=== PATIENT | female | born 1950 | race Caucasian/White ===

== ENCOUNTER 2022-08-25 14:22 | Observation (INO) | payer MEDICARE, MEDICAID, SELFPAY ==
--- NOTE | ~2022-08-25 | XR_ITS ---
EXAMINATION: XR chest 2V DATE: 08/25/22 INDICATION: Upper sternal pain. TECHNIQUE: Frontal and lateral views of the chest were obtained. COMPARISON: None. FINDINGS: There is mild atelectasis in lingula. No pleural effusion or pneumothorax. The heart size i s normal. Median sternotomy wires and mediastinal surgical clips are seen, likely from prior coronary artery bypass grafting. There is an old healed fracture of proximal left humerus. IMPRESSION: 1. Mild atelectasis in lingula. Reviewed, dictated and finalized at location A.
--- NOTE | ~2022-08-25 | CT_ITS ---
EXAMINATION: CT abdomen pelvis w con DATE: 08/25/2022 INDICATION: Generalized abdominal pain. TECHNIQUE: Computed tomography (CT) of the abdomen and pelvis was performed with 100 mL Omnipaque 350 intravenous contrast. Automated exposure control and iterative reconstruction technique were employe d. The dose-length product was 263 mGy-cm. COMPARISON: None. FINDINGS: The visualized portions of the lung bases demonstrate mild atelectasis. There is mild bronc hiectasis in right middle lobe. A calcified right lung nodule is consistent with old granulomatous di sease. No pleural effusion. The heart size is normal. No pericardial effusion. There is a small slidi ng hiatal hernia. The liver and spleen are normal. The gallbladder is distended. There is a 3 mm cyst in the pancreas, likely benign. The adrenal glands and kidneys are normal. There is diverticulosis o f the colon without evidence of diverticulitis. There is a large volume of stool in the colon. The ap pendix is normal. 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 There is mild stenosis of celiac axis and inferior mesenteric artery. There is thoracolumbar dextro scoliosis and severe spondylosis. IMPRESSION: 1. Gallbladder distention, which may be secondary to fasting. Correlate with physical exam to exclude acute cholecystitis. 2. 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 3. Small sliding hiatal hernia. Reviewed, dictated and finalized at location A. IMPRESSION: 1. Gallbladder distention, which may be secondary to fasting. Correlate with ph ysical exam to exclude acute cholecystitis. 2. 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 3. Small sliding hiatal hernia.
[2022-08-25 20:14] VITALS: BP 120/42; PULSE 87; O2SAT 97
[2022-08-25 20:43] LABS: Cholesterol 180 mg/dL (0-200); HDL Direct 47 mg/dL; Triglycerides 326 mg/dL (<150)
[2022-08-25 20:55] LABS: LDL Cholesterol Direct 87 mg/dL
[2022-08-25 22:14] VITALS: BP 124/79; PULSE 82; O2SAT 99
[2022-08-25 22:15] LABS: Troponin I 0.024 ng/mL (0.000-0.034)
[2022-08-25] MEDS: PANTOPRAZOLE SODIUM IV 40 MG VIAL IV PUSH (22:33)
[2022-08-25 23:15] VITALS: BP 137/49; PULSE 81; RESP 12; TEMP 36.6; O2SAT 99
[2022-08-26] VITALS (15 sets, daily range): BP systolic 116–147; BP diastolic 40–72; PULSE 66–97; RESP 15–20; TEMP 36.1–36.6; O2SAT 92–100; BMI 23.4; BMI 25.2
--- NOTE | 2022-08-26 00:01 | PC.NURSE ---
Patient was wanting something for pain. Notified EDP Dr. Paris.
[2022-08-26] MEDS: MORPHINE SULFATE (*CRX) 4 MG/ML INJ IV PUSH ×7 (00:11→20:46)
--- NOTE | 2022-08-26 00:23 | PC.NURSE ---
Patient requested Benadryl to help her sleep. Notified Dr. Paris who VRBO Benadryl 50mg IVP.
[2022-08-26] MEDS: diphenhydrAMINE HCl INJ 50 MG/ML VIAL IV PUSH (00:26)
--- NOTE | 2022-08-26 00:26 | PM.IMHP ---
H&P: HPI History of Present Illness Date/Time: 08/26/22 00:26 Chief Complaint: Abdominal pain Narrative: This is a 71-year-old female with past medical history significant for coronary artery disease, dyslipidemia, insulin-dependent diabetes mellitus, chronic mesenteric ischemia. Patient presents to the emergency room complaining of abdominal pain, constipation. Patient is a very circumstantial unable to give any meaningful history. Preliminary workup was significant for CT of abdomen and pelvis shows superior mesenteric artery occlusion with taoist by collaterals. A repeat troponin was elevated. Patient is been placed in observation for further evaluation management and treatment. Review of Systems Review of Systems: Abdominal pain, constipation ROS unobtainable: Yes other (Circumstantial) Meds Home Medications and Allergies Allergies Allergy/AdvReac Type Severity Reaction Status Date / Time aspirin Allergy Other Verified 08/25/22 22:31 Cephalosporins Allergy Rash Verified 08/25/22 22:31 codeine Allergy Dyspnea / Verified 08/25/22 22:31 SOB Tetracyclines Allergy Rash Verified 08/25/22 22:31 Vital Signs Vital Signs - 24 hr 08/25/22 20:14 08/25/22 22:14 08/25/22 23:15 Temperature 97.8 F Pulse Rate 87 82 81 Respiratory Rate 12 Blood Pressure 120/42 L 124/79 137/49 L Pulse Oximetry 97 99 99 Exam Narrative: Patient is sitting in a stretcher Const: General: comfortable, no acute distress, well developed, alert, awake and average body habitus Nutritional Appearance: average body habitus Orientation/consciousness: patient oriented x3 Other: Well-appearing HENMT: Head: normal to inspection, normocephalic and atraumatic Ears: hearing grossly normal bilaterally Face/Nose/Sinus: normal facial exam Face and sinus: normal facial exam Eyes: General: appearance normal, both eyes and all related structures Pupils: Equal, round and reactive pupils present EOM: EOMs intact bilaterally Neck: Neck: full ROM, no lymphadenopathy and no JVD Thyroid: thyroid normal Lymphatic: no lymphadenopathy noted Resp: Effort & Inspection: normal respiratory effort and able to speak in complete sentences Auscultation: clear to auscultation bilaterally Cardio: Jugular venous distension: no JVD Rate: regular rate Rhythm: regular rhythm Heart sounds: S1 normal heart sound present and S2 normal heart sound present GI: GI Palp: Yes Soft to palpation and Yes No hepatosplenomegaly present : General: Yes deferred Skin: Rashes: no rashes Wounds: no wounds Neuro: General: patient oriented x3 and CN's II-XI intact bilaterally Cranial nerves: Yes CN's II-XII intact bilaterally and Yes Equal, round and reactive pupils present Cognition (Neuro): normal cognition Speech: normal speech Gait exam (Neuro): Normal gait present Motor exam (neuro): 5/5 motor strength present throughout Extrem: General: normal to inspection, full ROM, no joint enlargement and no pedal edema H&P: Results Labs Labs: Cardiac Enzymes 08/25/22 Range/Units 21:44 Troponin I 0.024 (0.000-0.034) ng/mL Assessment and Plan Assessment and plan (1) Abdominal pain: Code(s): R10.9 - Unspecified abdominal pain Status: Acute Assessment and Plan: Place in observation Pain management Supportive care (2) Chronic mesenteric ischemia: Code(s): K55.1 - Chronic vascular disorders of intestine Status: Acute Assessment and Plan: Supportive care (3) Elevated troponin: Code(s): R77.8 - Other specified abnormalities of plasma proteins Status: Acute Assessment and Plan: Will trend troponins Continue to monitor Cardiology consult (4) Hypertriglyceridemia: Code(s): E78.1 - Pure hyperglyceridemia Status: Acute Assessment and Plan: Follow-up in outpatient setting (5) Coronary artery disease: Code(s): I25.10 - Atherosclerotic heart
--- NOTE | 2022-08-26 01:20 | ADMGEN ---
This patient, Leah Carlton, was admitted to IMU Room 200-01. Patient/family oriented to hospital policies and general routines including ID bracelet, bed and alarms, visiting hours, pain management, procedures, bathroom and other care routines, personal items, smoking policy, room service/diet, and visiting hours. Information on how to activate the Rapid Response Team has been discussed. Patient/Family are encouraged to report perceived risks to care and to ask questions if they do not understand what they are told or what they should do.
[2022-08-26] MEDS: LEVOTHYROXINE SODIUM 88 MCG TABLET PO (06:04)
[2022-08-26] MEDS: FUROSEMIDE 20 MG TABLET PO (09:36)
[2022-08-26] MEDS: amLODIPine BESYLATE 5 MG TABLET PO (09:37)
[2022-08-26] MEDS: FAMOTIDINE 20 MG TABLET 40 MG PO ×2 (09:37→17:22)
[2022-08-26] MEDS: CLOPIDOGREL BISULFATE 75 MG TABLET PO (09:37)
[2022-08-26] MEDS: ATORVASTATIN 40 MG TABLET 80 MG PO (09:37)
[2022-08-26] MEDS: ESCITALOPRAM OXALATE 10 MG TABLET PO (09:38)
[2022-08-26] MEDS: GABAPENTIN 300 MG CAPSULE PO ×3 (09:38→17:21)
[2022-08-26] MEDS: FENOFIBRATE 160 MG TABLET PO (09:38)
[2022-08-26] MEDS: BETHANECHOL CHLORIDE 10 MG TABLET PO ×2 (09:38→17:22)
[2022-08-26] MEDS: rOPINIRole HCL 0.5 MG TABLET PO ×4 (09:38→20:46)
[2022-08-26 09:56] LABS: Alanine Aminotransferase 27 U/L (6-35); Anion Gap 13 mmol/L (8-16); Aspartate Amino Transferase 39 U/L (14-36); Bilirubin,Total 0.5 mg/dL (0.2-1.3); Blood Urea Nitrogen 27 mg/dL (7-17); Calcium 10.3 mg/dL (8.4-10.2); Carbon Dioxide 24 mmol/L (22-30); Chloride 96 mmol/L (98-107); Estimated Glomerular Filt Rate 34; Glucose 235 mg/dL (65-110); Potassium 3.7 mmol/L (3.4-5.0); Sodium 133 mmol/L (137-145)
[2022-08-26 09:57] LABS: Albumin Level 4.9 g/dL (3.5-5.1); Alkaline Phosphatase 94 U/L (38-126); Lipase 70 U/L (23-300); Total Protein 8.2 g/dL (6.3-8.2); Troponin I < 0.012 ng/mL (0.000-0.034)
[2022-08-26 09:59] LABS: Hemoglobin 11.9 g/dL (12.0-15.0); Mean Corpuscular HGB Conc 31.3 g/dl (32-36); Mean Corpuscular Hemoglobin 27.4 pg (26-34); Mean Corpuscular Volume 87.4 fl (80-100); Red Blood Count 4.35 M/mm3 (4.2-5.4); Red Cell Distribution Width 14.2 % (11.5-14.5); White Blood Count 16.9 K/mm3 (4.5-10.0)
[2022-08-26 10:00] LABS: Mean Platelet Volume 10.3 fl (7.4-10.4); Platelet Count Result 380 k/mm3 (150-375)
--- NOTE | 2022-08-26 10:19 | PM.CNCAR ---
Assessment and Plan Assessment and plan (1) Chronic mesenteric ischemia: Code(s): K55.1 - Chronic vascular disorders of intestine Status: Acute Assessment and Plan: Patient presents with chronic but progressive abdominal pain with CTA this admission consistent with total occlusion of the proximal superior mesenteric artery with reconstitution with mild stenosis of the celiac access and inferior mesenteric artery. Her symptoms are concerning and appeared to somewhat out of proportion given the fact that there was only mild stenosis noted of the celiac access and inferior mesenteric artery. Lactic acid is negative head amylase lipase negative. There is no CT or laboratory evidence of acute pancreatitis, biliary disease, diverticulitis and patient denies a history of peptic ulcer disease. On we do not have a prior CTA for comparison although given the occlusion with reconstitution suggest more of a chronic process and patient reports several months of abdominal pain. Cause of her abdominal pain is very likely arterial occlusive disease. While there is no objective evidence at this time for tissue damage and her sxs gradually progressed as opposed to an acute development of severe abdominal pain, the benefit of systemic anticoagulation is questionable but not unreasonable. although no evidence of an acute thrombotic occlusion to warrant initiation of full systemic anticoagulation at this time. However, given progression and relative severity of her abdominal pain and the fact that vascular surgery is not available at this institution, she would be best managed transferring to outside hospital with Vascular Surgical Services in the event intervention is necessary. Need to continue to monitor clinical status, abdominal exam very closely and if any concern for bowel compromise or intractable pain consider transfer to outside hospital for higher level care and vascular surgery consultation as the services are not available at this institution. Patient is intolerant to aspirin. Continue clopidogrel 75 mg daily and Atorvastatin 80 mg daily. BP control but avoid hypotension. Pain control per primary service. Systemic anticoagulation with heparin infusion would be recommended. I remain concerned that if her symptoms cannot be controlled or further progress this could result in potential life-threatening circumstances which would require surgical intervention and services they are not readily available at this hospital. (2) Coronary artery disease: Qualifiers: Coronary Disease-Associated Artery/Lesion type: [place] artery [place] vs. transplanted heart: [place] heart Associated angina: with stable angina Qualified Code(s): I25.118 - Atherosclerotic heart disease of [place] coronary artery with other forms of angina pectoris Code(s): I25.10 - Atherosclerotic heart disease of [place] coronary artery without angina pectoris Status: Acute Assessment and Plan: Patient reports a history of chronic anginal symptoms responsive nitroglycerin but has not had chest pain symptoms for quite some time. She did not present with complaints of chest pain and serial troponins are negative with peak at 0.030 and further downward trend. Continue to monitor for development of anginal symptoms and cardiac status. Continue telemetry. Continue clopidogrel 75 mg daily, atorvastatin 80 mg at bedtime, fenofibrate 160 mg daily. As needed nitroglycerin for angina. Continue telemetry for now. (3) Hypertriglyceridemia: Code(s): E78.1 - Pure hyperglyceridemia Status: Acute Assessment and Plan: Continue management with fenofibrate 160 mg daily as tolerated and atorvastatin 80 mg at bedtime. (4) Hypertension associated with diabetes: Code(s): E11.59 - Type 2 diabetes mellitus with other circulatory complications; I15.2 - Hypertension secondary to endocrine disorders Status: Acute Assessment and Plan: BP sta
[2022-08-26 11:23] LABS: Troponin I 0.021 ng/mL (0.000-0.034)
--- NOTE | 2022-08-26 12:18 | PM.IMPN ---
Progress Note: A&P Assessment and Plan (1) Abdominal pain: Code(s): R10.9 - Unspecified abdominal pain Status: Acute Assessment and Plan: Still with abdominal pain, states it has been the same for the last several months, will consult GI Unsure of etiology, could be due to the sma occlusion as this was not present on the last CT from 06/2022 (2) Chronic mesenteric ischemia: Code(s): K55.1 - Chronic vascular disorders of intestine Status: Acute Assessment and Plan: Appears new from CT 06/2022, consult to GI pending, may need vascular surgery consult outpatient, consider blood thinners? (3) Elevated troponin: Code(s): R77.8 - Other specified abnormalities of plasma proteins Status: Acute Assessment and Plan: Cardio consult pending (4) Hypertriglyceridemia: Code(s): E78.1 - Pure hyperglyceridemia Status: Acute Assessment and Plan: Follow-up in outpatient setting (5) Coronary artery disease: Qualifiers: Coronary Disease-Associated Artery/Lesion type: [place] artery [place] vs. transplanted heart: [place] heart Associated angina: with stable angina Qualified Code(s): I25.118 - Atherosclerotic heart disease of [place] coronary artery with other forms of angina pectoris Code(s): I25.10 - Atherosclerotic heart disease of [place] coronary artery without angina pectoris Status: Acute Assessment and Plan: Continue home meds Continue to monitor (6) Insulin dependent diabetes mellitus: Status: Acute Assessment and Plan: Continue home meds Accu-Cheks AC and HS Blood glucose reviewed 08/26 (7) Restless leg syndrome: Code(s): G25.81 - Restless legs syndrome Status: Acute Assessment and Plan: Continue ropinirole Plan DVT prophylaxis with SCDs GI prophylaxis not indicated Code status full code Subjective Date/time seen: 08/26/22 12:18 Interval history: No overnight events noted. No chest pain or shortness of breath. No nausea, vomiting or diarrhea. No fevers or chills. Review of Systems Review of Systems: 12 point review of systems was assessed and was negative except as noted in the HPI Exam Narrative: General: No acute distress, alert and oriented per baseline HEENT: Atraumatic, normocephalic, mucous membranes moist CV: Regular rate and rhythm, S1, S2 Lungs: Clear to auscultation bilaterally, no rales or crackles noted, no wheezes, good air entry Abdomen: Soft, nontender, nondistended Extremities: Normal to inspection Skin: No rashes noted, no lesions or wounds seen Psych: Euthymic, normal affect Objective Data Vital Signs Vital Signs: Vital Signs - 24 hr 08/25/22 20:14 08/25/22 22:14 08/25/22 23:15 Temperature 97.8 F Pulse Rate 87 82 81 Respiratory Rate 12 Blood Pressure 120/42 L 124/79 137/49 L Pulse Oximetry 97 99 99 Oxygen Delivery 08/26/22 01:14 08/26/22 01:35 08/26/22 01:26 Temperature 97.5 F L Pulse Rate 70 68 69 Respiratory Rate 15 18 Blood Pressure 140/43 L 136/47 L Pulse Oximetry 100 100 Oxygen Delivery 08/26/22 01:45 08/26/22 04:00 08/26/22 04:00 Temperature 97.6 F Pulse Rate 72 66 Respiratory Rate 18 Blood Pressure 120/40 L Pulse Oximetry 97 Oxygen Delivery Room Air 08/26/22 04:00 08/26/22 06:00 08/26/22 08:00 Temperature 97.6 F Pulse Rate 67 80 Respiratory Rate 16 Blood Pressure 116/72 Pulse Oximetry 98 Oxygen Delivery Room Air 08/26/22 09:02 08/26/22 08:00 Temperature Pulse Rate Respiratory Rate Blood Pressure Pulse Oximetry 94 Oxygen Delivery Room Air Room Air Intake/Output Intake/Output: Intake & Output 08/23/22 08/24/22 08/25/22 08/26/22 23:59 23:59 23:59 23:59 Intake Total 340 Balance 340 Meds/Results Medications: Active Medications Generic Name Dose Route Start Last Admin Trade Name Freq PRTrisha Lock
[2022-08-26] MEDS: polyethylene glycoL 3350 17 GM POWD.PACK PO (12:28)
--- NOTE | 2022-08-26 13:05 | WPDGICN ---
Assessment and Plan Assessment and plan (1) Abdominal pain: Code(s): R10.9 - Unspecified abdominal pain Status: Acute Assessment and Plan: Patient has significant abdominal pain. Somewhat out of proportion to her physical findings. It is quite likely she has mesenteric ischemia. Given her CT scan imaging studies showing completed closure in of the superior mesenteric artery.. I think given the fact that this is quite likely the etiology for pain and we do not have vascular Surgical service is available I would encourage referral to an outside hospital that has these services available. Patient does have a normal lactic acid at present. Abdominal exam will need to be monitored closely. Given this likelihood I would encouraged continuing her on proton pump inhibitor therapy for possible gastritis but I would avoid endoscopic evaluation at present. I would continue her Plavix and atorvastatin currently being prescribed. Pain control will be given by the primary care service. It may be prudent to consider heparin anticoagulation. (2) Chronic mesenteric ischemia: Code(s): K55.1 - Chronic vascular disorders of intestine Status: Acute Assessment and Plan: CT a suggest occlusion of the superior mesenteric artery. Patient appears to have significant vascular disease. She is known to have acid sclerotic heart disease. Concern over intra-abdominal ischemia is significant. I would recommend evaluation by vascular surgery service in her instance. Continue to monitor exam closely. (3) Coronary artery disease: Qualifiers: Coronary Disease-Associated Artery/Lesion type: [place] artery [place] vs. transplanted heart: [place] heart Associated angina: with stable angina Qualified Code(s): I25.118 - Atherosclerotic heart disease of [place] coronary artery with other forms of angina pectoris Code(s): I25.10 - Atherosclerotic heart disease of [place] coronary artery without angina pectoris Status: Acute Assessment and Plan: Patient with known atherosclerotic heart disease. She has a prior history of CABG. Cardiology service following with us. (4) Insulin dependent diabetes mellitus: Status: Acute (5) Status post aorto-coronary artery bypass graft: Code(s): Z95.1 - Presence of aortocoronary bypass graft Status: Acute GI Consult Note Consult date/time: 08/26/22 13:05 Reason for consult: Abdominal pain and abnormal CT scan. HPI: Leah Carlton is a 71 year old female Presented to the emergency room and was admitted because of abdominal pain yesterday. Patient reports rather generalized persistent abdominal pain. She states has been present for at least 2 months. It becomes more intense after eating. She does feel some relief after passing flatus. Patient has a known history of atherosclerotic heart disease. She has a history of heart bypass in the past. She had a CT a performed at the time of admission which revealed total occlusion of the proximal superior mesenteric artery. There appeared to also be some reconstitution with mild stenosis of the celiac axis and inferior mesenteric artery. I have no old records to compare this to. Patient reports in the past she was told she has gastritis. At 1 point she had Crohn acute pancreatitis 10 years ago. In the past she has had angina of the heart responding to use nitroglycerin. Patient's family history is noncontributory. Past medical history also significant for hyperlipidemia diabetes mellitus, hypertension, and coronary artery bypass grafting. Patient describes that her stools are brownish patient was admitted the hospital currently hemodynamically stable. Cardiology has been asked to follow and consult as well. Review of Systems Review of Systems: Review of systems noncontributory. [facility] Past Medical History Medical History CKD st
[2022-08-26 13:23] LABS: Basophils Absolute Auto 0.1 K/mm3 (0.0-0.1); Basophils Percent Auto 0.5 % (0.2-1.2); Eosinophils Absolute Auto 0.3 K/mm3 (0-0.3); Eosinophils Percent Auto 1.7 % (0-4.4); Hematocrit 34.2 % (37.0-47.0); Hemoglobin 10.8 g/dL (12.0-15.0); Immature Granulocyte Absolute 0.07 K/mm3 (0.00-0.031); Immature Granulocyte Percent A 0.4 % (0-0.5); Lymphocytes Absolute Auto 1.83 K/mm3 (0.9-3.2); Lymphocytes Percent Auto 11.3 % (18.3-44.2); Mean Corpuscular HGB Conc 31.6 g/dl (32-36); Mean Corpuscular Hemoglobin 27.2 pg (26-34); Mean Corpuscular Volume 86.1 fl (80-100); Mean Platelet Volume 9.9 fl (7.4-10.4); Monocytes Absolute Auto 0.9 K/mm3 (0.1-0.6); Monocytes Percent Auto 5.5 % (2.6-8.5); Neutrophils Absolute Auto 13.1 K/mm3 (1.3-6.7); Neutrophils Percent Auto 80.6 % (45.5-73.1); Platelet Count Result 347 k/mm3 (150-375); Red Blood Count 3.97 M/mm3 (4.2-5.4); Red Cell Distribution Width 14.6 % (11.5-14.5); White Blood Count 16.2 K/mm3 (4.5-10.0)
[2022-08-26 13:35] LABS: INR 1.2; Prothrombin Time 16.3 Seconds (11.1-14.7)
[2022-08-26 13:36] LABS: Partial Thromboplastin Time 36.9 SECONDS (22.3-36.8)
[2022-08-26 13:49] LABS: Estimated Glomerular Filt Rate 30
[2022-08-26] MEDS: HEPARIN SOD/D5W 100 UNITS/ML 25,000 UNITS/250 ML BAG 9 UNITS IV CONT (14:35)
[2022-08-26] MEDS: HEPARIN SODIUM 5,000 UNITS/ML VIAL 4000 UNITS IV PUSH (14:37)
[2022-08-26 14:52] LABS: Glucose Point of Care 255 mg/dl (65-105)
[2022-08-26 14:52] LABS: Glucose Point of Care 249 mg/dl (65-105)
[2022-08-26 18:11] LABS: Glucose Point of Care 233 mg/dl (65-105)
[2022-08-26 20:55] LABS: Partial Thromboplastin Time 135.7 SECONDS (22.3-36.8)
[2022-08-27] VITALS: PULSE 94; RESP 20; O2SAT 93
[2022-08-27] MEDS: MORPHINE SULFATE (*CRX) 4 MG/ML INJ IV PUSH ×3 (00:30→09:01)
[2022-08-27 01:21] LABS: Appearance Urine Clear (Clear); Bacteria Urine 4+ /hpf; Bilirubin Urine Negative (Negative); Blood Urine Negative (Negative); Color Urine Yellow (Yellow); Glucose Urine UA 1+ mg/dL (Negative); Ketones Urine Negative (Negative); Leukocyte Esterase Ur Negative LEU/UL (Negative); Nitrate Urine Negative (Negative); Non Pathogenic Casts 0-2; Protein Urine 1+ mg/dL (Negative); RBC Urine 0-2 /hpf (0-2); Specific Grav Ur 1.017 (1.001-1.035); Squamous Epithelial Cell Urine None seen /hpf (Few); Urobilinogen Urine 0.2 mg/dL (<2.0); WBC Urine 0-5 /hpf
[2022-08-27 01:22] LABS: Add Urine Microscopic? YES
[2022-08-27 02:00] VITALS: PULSE 92
[2022-08-27 04:00] VITALS: BP 126/49; PULSE 83; PULSE 84; RESP 18; TEMP 36.6; O2SAT 96
[2022-08-27 04:49] LABS: Basophils Absolute Auto 0.1 K/mm3 (0.0-0.1); Basophils Percent Auto 0.6 % (0.2-1.2); Eosinophils Absolute Auto 0.2 K/mm3 (0-0.3); Eosinophils Percent Auto 1.4 % (0-4.4); Hematocrit 35.7 % (37.0-47.0); Hemoglobin 11.4 g/dL (12.0-15.0); Immature Granulocyte Absolute 0.11 K/mm3 (0.00-0.031); Immature Granulocyte Percent A 0.7 % (0-0.5); Lymphocytes Absolute Auto 2.77 K/mm3 (0.9-3.2); Lymphocytes Percent Auto 16.4 % (18.3-44.2); Mean Corpuscular HGB Conc 31.9 g/dl (32-36); Mean Corpuscular Hemoglobin 27.6 pg (26-34); Mean Corpuscular Volume 86.4 fl (80-100); Mean Platelet Volume 10.1 fl (7.4-10.4); Monocytes Absolute Auto 0.9 K/mm3 (0.1-0.6); Monocytes Percent Auto 5.5 % (2.6-8.5); Neutrophils Absolute Auto 12.7 K/mm3 (1.3-6.7); Neutrophils Percent Auto 75.4 % (45.5-73.1); Platelet Count Result 404 k/mm3 (150-375); Red Blood Count 4.13 M/mm3 (4.2-5.4); Red Cell Distribution Width 14.9 % (11.5-14.5); White Blood Count 16.9 K/mm3 (4.5-10.0)
[2022-08-27] MEDS: LEVOTHYROXINE SODIUM 88 MCG TABLET PO (04:49)
[2022-08-27 05:03] LABS: Partial Thromboplastin Time 82.8 SECONDS (22.3-36.8)
[2022-08-27 06:00] VITALS: PULSE 82
--- NOTE | 2022-08-27 07:40 | PM.IMPN ---
Progress Note: A&P Assessment and Plan (1) Abdominal pain: Code(s): R10.9 - Unspecified abdominal pain Status: Acute Assessment and Plan: Still with abdominal pain, states it has been the same for the last several months, GI consult appreciated, recommending transfer for vascular surgery evaluation Unsure of etiology, could be due to the sma occlusion as this was not present on the last CT from 06/2022 (2) Chronic mesenteric ischemia: Code(s): K55.1 - Chronic vascular disorders of intestine Status: Acute Assessment and Plan: Appears new from CT 06/2022, consult to GI pending, may need vascular surgery consult outpatient, started on heparin drip 08/26/22 (3) Elevated troponin: Code(s): R77.8 - Other specified abnormalities of plasma proteins Status: Acute Assessment and Plan: Cardio consult appreciated, transfer recommended (4) Hypertriglyceridemia: Code(s): E78.1 - Pure hyperglyceridemia Status: Acute Assessment and Plan: Follow-up in outpatient setting (5) Coronary artery disease: Qualifiers: Associated angina: with stable angina Coronary Disease-Associated Artery/Lesion type: [place] artery [place] vs. transplanted heart: [place] heart Qualified Code(s): I25.118 - Atherosclerotic heart disease of [place] coronary artery with other forms of angina pectoris Code(s): I25.10 - Atherosclerotic heart disease of [place] coronary artery without angina pectoris Status: Acute Assessment and Plan: Continue home meds Continue to monitor (6) Insulin dependent diabetes mellitus: Status: Acute Assessment and Plan: Continue home meds Accu-Cheks AC and HS Blood glucose reviewed 08/27 (7) Restless leg syndrome: Code(s): G25.81 - Restless legs syndrome Status: Acute Assessment and Plan: Continue ropinirole Plan DVT prophylaxis with SCDs GI prophylaxis not indicated Code status full code 08/26: started on heparin drip, consulted cardio and GI. 08/27: 7:45am Called [facility] and [facility] for transfer for vascular surgery consult 7:45am. 8:17am Accepted in consult by [facility] surgeon Dr Tanner at [facility] who recommended continuing heparin drip, aspirin, plavix, lipitor, and hydrate well with IVF, no urgent concerns. Monitor BMP for bicarb elevation and lactic acid levels. 8:38am Dr Juan Pop, hospitalist, accepted for admission at [facility], no beds available at this time. 9:00am Dr Chen, vascular surgeon at [facility], accepted in consultation. 9:34am Dr Roger, hospitalist, accepted at [facility] for admission to [facility]. Subjective Date/time seen: 08/27/22 07:40 Interval history: No overnight events noted. No chest pain or shortness of breath. No nausea, vomiting or diarrhea. No fevers or chills. Review of Systems Review of Systems: 12 point review of systems was assessed and was negative except as noted in the HPI Exam Narrative: General: No acute distress, alert and oriented per baseline HEENT: Atraumatic, normocephalic, mucous membranes moist CV: Regular rate and rhythm, S1, S2 Lungs: Clear to auscultation bilaterally, no rales or crackles noted, no wheezes, good air entry Abdomen: Soft, nontender, nondistended Extremities: Normal to inspection Skin: No rashes noted, no lesions or wounds seen Psych: Euthymic, normal affect Objective Data Vital Signs Vital Signs: Vital Signs - 24 hr 08/26/22 08:00 08/26/22 09:02 08/26/22 08:00 Temperature 97.6 F Pulse Rate 80 Respiratory Rate 16 Blood Pressure 116/72 Pulse Oximetry 98 94 Oxygen Delivery Room Air Room Air 08/26/22 12:00 08/26/22 12:00 08/26/22 16:00 Temperature 96.9 F L Pulse Rate 80 Respiratory Rate 18 Blood Pressure 147/51 H Pulse Oximetry 92 Oxygen Delivery Room Air Room Air 08/26/22 08:00 08/26/22 10:00 08/26
[2022-08-27 08:00] VITALS: BP 140/50; PULSE 81; PULSE 82; RESP 14; TEMP 36.3; O2SAT 95
[2022-08-27] MEDS: FAMOTIDINE 20 MG TABLET 40 MG PO (09:04)
[2022-08-27] MEDS: BETHANECHOL CHLORIDE 10 MG TABLET PO (09:04)
[2022-08-27] MEDS: FENOFIBRATE 160 MG TABLET PO (09:04)
[2022-08-27] MEDS: rOPINIRole HCL 0.5 MG TABLET PO (09:04)
[2022-08-27] MEDS: polyethylene glycoL 3350 17 GM POWD.PACK PO (09:05)
[2022-08-27] MEDS: ESCITALOPRAM OXALATE 10 MG TABLET PO (09:05)
[2022-08-27] MEDS: GABAPENTIN 300 MG CAPSULE PO (09:05)
[2022-08-27] MEDS: amLODIPine BESYLATE 5 MG TABLET PO (09:05)
[2022-08-27] MEDS: CLOPIDOGREL BISULFATE 75 MG TABLET PO (09:06)
[2022-08-27] MEDS: ATORVASTATIN 40 MG TABLET 80 MG PO (09:06)
[2022-08-27] MEDS: SODIUM CHLORIDE 0.9% IV 1,000 ML 100 ML IV CONT (09:18)
--- NOTE | 2022-08-27 09:54 | WPDGIPROGNO ---
Progress Note: A&P Assessment and Plan (1) Abdominal pain: Code(s): R10.9 - Unspecified abdominal pain Status: Acute Assessment and Plan: Patient with ongoing abdominal pain. Suspicious that this may represent ischemic bowel. 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 I would encourage opinion from vascular surgeons. If these are not available at our institution meat she may need referral. If patient remains at our institution I would suggest proceeding with colonoscopy an EGD to exclude other concomitant diseases. Continue to monitor labs, physical exam and lactic acid level. (2) Chronic mesenteric ischemia: Code(s): K55.1 - Chronic vascular disorders of intestine Status: Acute Assessment and Plan: Mesenteric ischemia suggested by CTA imaging. Consider opinion from vascular surgery. Patient known to have vascular disease has had previous coronary artery bypass graft. (3) Coronary artery disease: Qualifiers: Coronary Disease-Associated Artery/Lesion type: [place] artery [place] vs. transplanted heart: [place] heart Associated angina: with stable angina Qualified Code(s): I25.118 - Atherosclerotic heart disease of [place] coronary artery with other forms of angina pectoris Code(s): I25.10 - Atherosclerotic heart disease of [place] coronary artery without angina pectoris Status: Acute (4) Status post aorto-coronary artery bypass graft: Code(s): Z95.1 - Presence of aortocoronary bypass graft Status: Acute (5) Type 2 diabetes mellitus: Code(s): E11.9 - Type 2 diabetes mellitus without complications Status: Acute Subjective Date/time seen: 08/27/22 09:54 Interval history: Patient alert this morning. Continues to complain of ongoing abdominal pain. Appears to be more in the right abdomen than the last. Has had some bowel movements. No blood noted. No fever described. Review of Systems Review of Systems: Review of systems noncontributory. Exam Narrative: Physical exam reveals patient to be alert. Vital signs stable. HEENT exam reveals no icterus. Lungs are clear. Heart without murmur. Abdomen bowel sounds present soft diffusely tender. No guarding or rebound. She appears more tender on the right abdomen compared to the left. Objective Data Vital Signs Vital Signs: Vital Signs - 24 hr 08/26/22 12:00 08/26/22 12:00 08/26/22 16:00 Temperature 96.9 F L Pulse Rate 80 Respiratory Rate 18 Blood Pressure 147/51 H Pulse Oximetry 92 Oxygen Delivery Room Air Room Air 08/26/22 10:00 08/26/22 12:00 08/26/22 14:00 Temperature Pulse Rate 83 81 89 Respiratory Rate Blood Pressure Pulse Oximetry Oxygen Delivery 08/26/22 16:00 08/26/22 16:00 08/26/22 18:00 Temperature 96.9 F L Pulse Rate 79 80 78 Respiratory Rate 16 Blood Pressure 125/42 L Pulse Oximetry 93 Oxygen Delivery 08/26/22 20:00 08/26/22 20:00 08/26/22 20:00 Temperature 98 F Pulse Rate 97 91 91 Respiratory Rate 16 16 Blood Pressure 118/55 L Pulse Oximetry 93 93 Oxygen Delivery Room Air 08/26/22 21:58 08/26/22 23:35 08/27/22 00:00 Temperature 97.8 F Pulse Rate 90 83 94 Respiratory Rate 20 Blood Pressure 137/52 L Pulse Oximetry 93 Oxygen Delivery 08/27/22 00:00 08/27/22 02:00 08/27/22 04:00 Temperature 97.9 F Pulse Rate 94 92 84 Respiratory Rate 20 18 Blood Pressure 126/49 L Pulse Oximetry 93 96 Oxygen Delivery Room Air 08/27/22 04:00 08/27/22 04:00 08/27/22 06:00 Temperature Pulse Rate 83 83 82 Respiratory Rate 18 Blood Pressure Pulse Oximetry 96 Oxygen Delivery Room Air 08/27/22 08:00 Temperature 97.3 F L Pulse Rate 82 Respiratory Rate 14 Blood Pressure 140/50 L Pulse Oximetry 95 Oxygen Delivery Intake/Output Intake/Output: Intake & Output 08/24/22 08/25/22 08/26/22 08/27/22 23:59 23:59 23:
--- NOTE | 2022-08-27 10:28 | PM.TDS ---
Transfer Discharge Sum: Prov Provider Date of admission: 08/26/22 00:10 Primary care physician: Raphael Kidd, Admitting clinician: Shorty Saravia MD Consults: 08/26/22 Consult to Physician Routine Comment: Spoke with and notified him of consult Consulting Provider: Scot Johnson aircraft de icer installer/MD group to consult: GI Reason for consultation: abdominal pain Has provider been notified: Yes 08/26/22 00:11 Consult to Physician Routine Comment: Consulting Provider: Aura Jones Reason for consultation: Chest pain, increased delta troponin history of CAD Has provider been notified: Yes DS: Admitting Diagnosis Discharge Date 08/27/22 Admitting Diagnosis abd pain DS: Discharge Diagnosis Discharge Diagnosis (1) Abdominal pain: Code(s): R10.9 - Unspecified abdominal pain Status: Acute Assessment and Plan: Still with abdominal pain, states it has been the same for the last several months, GI consult appreciated, recommending transfer for vascular surgery evaluation Unsure of etiology, could be due to the sma occlusion as this was not present on the last CT from 06/2022 (2) Chronic mesenteric ischemia: Code(s): K55.1 - Chronic vascular disorders of intestine Status: Acute Assessment and Plan: Appears new from CT 06/2022, consult to GI pending, may need vascular surgery consult outpatient, started on heparin drip 08/26/22 (3) Elevated troponin: Code(s): R77.8 - Other specified abnormalities of plasma proteins Status: Acute Assessment and Plan: Cardio consult appreciated, transfer recommended (4) Hypertriglyceridemia: Code(s): E78.1 - Pure hyperglyceridemia Status: Acute Assessment and Plan: Follow-up in outpatient setting (5) Coronary artery disease: Qualifiers: Coronary Disease-Associated Artery/Lesion type: [place] artery [place] vs. transplanted heart: [place] heart Associated angina: with stable angina Qualified Code(s): I25.118 - Atherosclerotic heart disease of [place] coronary artery with other forms of angina pectoris Code(s): I25.10 - Atherosclerotic heart disease of [place] coronary artery without angina pectoris Status: Acute Assessment and Plan: Continue home meds Continue to monitor (6) Insulin dependent diabetes mellitus: Status: Acute Assessment and Plan: Continue home meds Accu-Cheks AC and HS Blood glucose reviewed 08/27 (7) Restless leg syndrome: Code(s): G25.81 - Restless legs syndrome Status: Acute Assessment and Plan: Continue ropinirole Plan DVT prophylaxis with SCDs GI prophylaxis not indicated Code status full code 08/26: started on heparin drip, consulted cardio and GI. 08/27: 7:45am Called [facility] for transfer for vascular surgery consult 7:45am. 8:17am Accepted in consult by [facility] surgeon Dr Tanner at [facility] who recommended continuing heparin drip, aspirin, plavix, lipitor, and hydrate well with IVF, no urgent concerns. Monitor BMP for bicarb elevation and lactic acid levels. 8:38am Dr Juan Pop, hospitalist, accepted for admission at [facility] to med-tele bed, no beds available at this time. 9:00am Dr Chen, vascular surgeon at [facility], accepted in consultation. 9:34am Dr Roger, hospitalist, accepted at [facility] for admission to [facility] bed. Transfer Discharge Sum: Med Medications Active and Home Medications: Home Medications amlodipine 5 mg tablet 5 mg PO DAILY 08/26/22 [History Confirmed 08/26/22] atorvastatin 80 mg tablet 80 mg PO DAILY 08/26/22 [History Confirmed 08/26/22] bethanechol chloride 10 mg tablet 10 mg PO BID 08/26/22 [History Confirmed 08/26/22] clopidogrel 75 mg tablet 75 mg PO DAILY 08/26/22 [History Confirmed 08/26/22] escitalopram oxalate 10 mg tablet 10 mg PO DAILY 08/26/22 [History Confirmed 08/26/22] famotidine 40 mg tablet 4
[2022-08-27 10:39] LABS: Basophils Absolute Auto 0.1 K/mm3 (0.0-0.1); Basophils Percent Auto 0.7 % (0.2-1.2); Eosinophils Absolute Auto 0.2 K/mm3 (0-0.3); Eosinophils Percent Auto 1.7 % (0-4.4); Hematocrit 32.5 % (37.0-47.0); Hemoglobin 10.4 g/dL (12.0-15.0); Immature Granulocyte Absolute 0.06 K/mm3 (0.00-0.031); Immature Granulocyte Percent A 0.4 % (0-0.5); Lymphocytes Absolute Auto 1.73 K/mm3 (0.9-3.2); Lymphocytes Percent Auto 12.5 % (18.3-44.2); Mean Corpuscular Hemoglobin 27.8 pg (26-34); Mean Corpuscular Volume 86.9 fl (80-100); Neutrophils Absolute Auto 10.7 K/mm3 (1.3-6.7); Neutrophils Percent Auto 77.7 % (45.5-73.1); Platelet Count Result 336 k/mm3 (150-375); Red Blood Count 3.74 M/mm3 (4.2-5.4); Red Cell Distribution Width 14.6 % (11.5-14.5); White Blood Count 13.8 K/mm3 (4.5-10.0)
[2022-08-27 10:52] LABS: Partial Thromboplastin Time 78.4 SECONDS (22.3-36.8)
[2022-08-27 11:07] LABS: Lactic Acid Reflex 1.1 mmol/L (0.7-2.0)
[2022-08-27 11:39] VITALS: PULSE 84
== END 2022-08-27 11:48 | disposition short-term general hospital (02) ==
LOC: ANHED 17:05 → ANHIMU 08-30 15:18
PROVIDERS: Emergency Medicine; Internal Medicine Cardiovascular Disease; Admitting Provider Internal Medicine; Emergency Provider Emergency Medicine; PCP Emergency Medicine; Visit Provider Student in an Organized Health Care Education/Training Program
DX: K55.1 Chronic vascular disorders of intestine (principal); R77.8 Other specified abnormalities of plasma proteins; E78.1 Pure hyperglyceridemia; Z95.1 Presence of aortocoronary bypass graft; I25.118 Atherosclerotic heart disease of native coronary artery with other forms of angina pectoris; E11.59 Type 2 diabetes mellitus with other circulatory complications; I12.9 Hypertensive chronic kidney disease with stage 1 through stage 4 chronic kidney disease, or unspecified chronic kidney disease; E11.22 Type 2 diabetes mellitus with diabetic chronic kidney disease; N18.30 Chronic kidney disease, stage 3 unspecified; K82.8 Other specified diseases of gallbladder; R07.9 Chest pain, unspecified; J98.11 Atelectasis; E03.9 Hypothyroidism, unspecified; G25.81 Restless legs syndrome; K44.9 Diaphragmatic hernia without obstruction or gangrene; Z87.891 Personal history of nicotine dependence; Z79.4 Long term (current) use of insulin; Z79.84 Long term (current) use of oral hypoglycemic drugs; Z79.02 Long term (current) use of antithrombotics/antiplatelets; Z79.899 Other long term (current) drug therapy
CPT/HCPCS: 36415; 71046; 74177; 80053; 80061; 81001; 82565; 82948; 83605; 83690; 84484; 85025; 85027; 85610; 85730; 96365; 96366; 96376; A9270; C9113; G0378; J0500; J1200; J1644; J2270; J2405; J2765; J7030; Q9967

== ENCOUNTER 2022-09-25 14:12 | Emergency (ER) | payer MEDICARE, MEDICAID, SELFPAY ==
--- NOTE | ~2022-09-25 | CT_ITS ---
EXAMINATION: CT abdomen pelvis w con DATE: 09/25/2022 16:51 INDICATION: Ventral incisional hernia. TECHNIQUE: Computed tomography (CT) of the abdomen and pelvis was performed with 100 mL Omnipaque 350 intravenous contrast. Automated exposure control and iterative reconstruction technique were employe d. The dose-length product was 243.19 mGy-cm. COMPARISON: CT abdomen and pelvis 08/25/2022 FINDINGS: The visualized portions of the lung bases demonstrate mild atelectasis and mild bronchiecta sis. A calcified right lung nodule is consistent with old granulomatous disease. No pleural effusion. The heart size is normal. No pericardial effusion. There is a small sliding hiatal hernia. The liver , spleen, gallbladder, pancreas, adrenal glands, and kidneys are normal. There is diverticulosis of t he colon without evidence of diverticulitis. There are no dilated loops of bowel. There is an anastom osis in right abdomen. There is an infraumbilical ventral hernia containing fat. There is calcified a therosclerosis of the aorta and many of the other arteries. There is moderate stenosis of celiac axis . Again seen is total occlusion versus severe stenosis of proximal superior mesenteric artery. There are no pathologically enlarged lymph nodes. There is no free intraperitoneal fluid. There is severe l umbar spondylosis. There is thoracolumbar dextroscoliosis. IMPRESSION: 1. Infraumbilical ventral hernia containing fat. 2. Small sliding hiatal hernia. 3. Total occlusion versus severe stenosis of proximal superior mesenteric artery. Moderate stenosis o f celiac axis. Reviewed, dictated and finalized at location E. IMPRESSION: 1. Infraumbilical ventral hernia containing fat. 2. Small sliding hiatal hernia. 3. Total occlusion versus severe stenosis of proximal superior mesenteric arter y. Moderate stenosis of celiac axis.
[2022-09-25 14:30] VITALS: BP 138/46; PULSE 66; RESP 16; TEMP 35.9; O2SAT 100
[2022-09-25 16:24] LABS: Basophils Absolute Auto 0.1 K/mm3 (0.0-0.1); Basophils Percent Auto 0.7 % (0.2-1.2); Eosinophils Absolute Auto 0.7 K/mm3 (0-0.3); Eosinophils Percent Auto 7.1 % (0-4.4); Hematocrit 35.7 % (37.0-47.0); Immature Granulocyte Absolute 0.02 K/mm3 (0.00-0.031); Immature Granulocyte Percent A 0.2 % (0-0.5); Lymphocytes Absolute Auto 2.79 K/mm3 (0.9-3.2); Lymphocytes Percent Auto 29.6 % (18.3-44.2); Mean Corpuscular HGB Conc 30.8 g/dl (32-36); Mean Corpuscular Volume 90.8 fl (80-100); Mean Platelet Volume 10.1 fl (7.4-10.4); Monocytes Absolute Auto 0.6 K/mm3 (0.1-0.6); Monocytes Percent Auto 6.6 % (2.6-8.5); Neutrophils Absolute Auto 5.3 K/mm3 (1.3-6.7); Neutrophils Percent Auto 55.8 % (45.5-73.1); Platelet Count Result 241 k/mm3 (150-375); Red Blood Count 3.93 M/mm3 (4.2-5.4); Red Cell Distribution Width 14.8 % (11.5-14.5); White Blood Count 9.4 K/mm3 (4.5-10.0)
[2022-09-25 16:35] LABS: Alanine Aminotransferase 23 U/L (6-35); Albumin Level 4.2 g/dL (3.5-5.1); Alkaline Phosphatase 138 U/L (38-126); Anion Gap 9 mmol/L (8-16); Aspartate Amino Transferase 27 U/L (14-36); Bilirubin,Total 0.3 mg/dL (0.2-1.3); Blood Urea Nitrogen 18 mg/dL (7-17); Calcium 9.7 mg/dL (8.4-10.2); Carbon Dioxide 20 mmol/L (22-30); Chloride 110 mmol/L (98-107); Estimated Glomerular Filt Rate > 60; Glucose 128 mg/dL (65-110); Potassium 4.3 mmol/L (3.4-5.0); Sodium 139 mmol/L (137-145)
--- NOTE | 2022-09-25 17:49 | ED.GENADULT ---
HPI - General Adult General Chief complaint: Abdominal Pain Stated complaint: post op pain ([facility] surgery 09/03) Time Seen by Provider: 09/25/22 15:19 History of Present Illness HPI narrative: Patient is a 71-year-old female who presents ER with lower abdominal pain. She reports she was pulling a close hamper when she felt sudden onset discomfort. She recently underwent partial bowel resection for ischemic bowel. This was 3 weeks ago at [facility]. At that time patient was also evaluated for a stenotic SMA. It is found that she had collateral flow and there is no intervention required. She has no intra-abdominal discomfort at this time. She only has pain over a defect that is beneath her surgical site. No fevers or chills or sweats. She reports she had a lifting restriction that she did not follow, she thought that pulling the hamper was okay even though she was not supposed to lift anything up. She has no difficulty with urination/defecation. No abdominal distention. No nausea or vomiting Related Data Home Medications Medication Instructions Recorded Confirmed amlodipine 5 mg tablet 5 mg PO DAILY 08/26/22 08/26/22 atorvastatin 80 mg tablet 80 mg PO DAILY 08/26/22 08/26/22 bethanechol chloride 10 mg tablet 10 mg PO BID 08/26/22 08/26/22 clopidogrel 75 mg tablet 75 mg PO DAILY 08/26/22 08/26/22 escitalopram oxalate 10 mg tablet 10 mg PO DAILY 08/26/22 08/26/22 famotidine 40 mg tablet 40 mg PO BID 08/26/22 08/26/22 fenofibrate 160 mg tablet 160 mg PO DAILY 08/26/22 08/26/22 fentanyl 50 mcg/hr transdermal 50 mcg transdermal Q72H 08/26/22 08/26/22 patch fluconazole 100 mg tablet 100 mg PO DAILY 08/26/22 08/26/22 furosemide 20 mg tablet 20 mg PO DAILY 08/26/22 08/26/22 gabapentin 300 mg capsule 300 mg PO TID 08/26/22 08/26/22 glipizide 10 mg tablet, extended 10 mg PO DAILY 08/26/22 08/26/22 release 24 hr hydroxyzine HCl 25 mg tablet 25 mg PO HS PRN Insomnia 08/26/22 08/26/22 levothyroxine 88 mcg tablet 88 mcg PO DAILY 08/26/22 08/26/22 naloxegol 25 mg tablet (Movantik) 25 mg PO DAILY 08/26/22 08/26/22 nitroglycerin 0.4 mg sublingual 0.4 mg sublingual Q15M PRN Chest 08/26/22 08/26/22 tablet Pain ropinirole 0.5 mg tablet 0.5 mg PO QID 08/26/22 08/26/22 Allergies Allergy/AdvReac Type Severity Reaction Status Date / Time aspirin Allergy Other Verified 08/25/22 22:31 Cephalosporins Allergy Rash Verified 08/25/22 22:31 codeine Allergy Dyspnea / Verified 08/25/22 22:31 SOB Tetracyclines Allergy Rash Verified 08/25/22 22:31 Review of Systems Review of Systems: All systems reviewed & are unremarkable except as noted in HPI and below Constitutional: Constitutional: Denies chills, Denies fatigue and Denies fever(s) ENT: Denies nasal congestion and Denies sore throat Cardiovascular: Cardiovascular: Denies chest pain, Denies rapid heart rate and Denies radiating jaw, neck or arm pain Respiratory: Respiratory: Denies cough and Denies dyspnea Gastrointestinal: Gastrointestinal: Reports abdominal pain, Denies diarrhea, Denies nausea and Denies vomiting PMFSH Past Medical History Medical History CKD stage 3 due to type 2 diabetes mellitus History of tobacco abuse Hypertension associated with diabetes Hypertriglyceridemia Hypothyroidism Type 2 diabetes mellitus Surgical History Surgical History Status post aorto-coronary artery bypass graft Family History Family History Daughter Crohn's disease Son Crohn's disease Social History Social History Years smoked: 20 Smoking status: Former smoker Alcohol intake: never Substance use: never Lack of Transportation: No Lack of Food: Sometimes True Current Housing: I Have Housing Concerned About Future Housing
[2022-09-25 18:00] VITALS: BP 144/42; PULSE 97; RESP 16; O2SAT 98
== END 2022-09-25 18:00 | disposition home or self-care (01) ==
PROVIDERS: Emergency Provider Emergency Medicine; PCP Emergency Medicine
DX: K43.9 Ventral hernia without obstruction or gangrene (principal); E11.22 Type 2 diabetes mellitus with diabetic chronic kidney disease; I12.9 Hypertensive chronic kidney disease with stage 1 through stage 4 chronic kidney disease, or unspecified chronic kidney disease; N18.30 Chronic kidney disease, stage 3 unspecified; E03.9 Hypothyroidism, unspecified; Z87.891 Personal history of nicotine dependence; Z98.890 Other specified postprocedural states
CPT/HCPCS: 36415; 74177; 80053; 85025; 99284; Q9967

== ENCOUNTER 2022-12-13 18:28 | Emergency (ER) | payer MEDICARE, MEDICAID, SELFPAY ==
--- NOTE | ~2022-12-13 | CT_ITS ---
CT of the Abdomen and Pelvis: Indication: Abdominal pain Technique: 2.5 mm axial scans were obtained through the abdomen and pelvis following intravenous adm inistration of 100 cc of Omnipaque 350. Dose reduction technique was used on this scan by utilizing a utomated exposure control and iterative reconstruction technique. The dose-length product (DLP) was 2 76.60 mGy-cm. COMPARISON: 09/25/2022 Findings: Scans through the lung bases demonstrate calcified right basilar granuloma. The liver, spleen, pancreas, gallbladder, adrenals and kidneys are within normal limits. There are at herosclerotic calcifications of the aorta. Again noted is probable occlusion at the origin of the SMA with distal reconstitution, as well as probable significant stenosis of the proximal celiac axis. No lymphadenopathy. No bowel obstruction or bowel wall thickening. There is no evidence to suggest acute appendicitis. Images through the pelvis were performed. Urinary bladder unremarkable. No definite adnexal mass seen . No ascites. Severe degenerative spondylosis of lumbar spine noted. Impression: No acute abnormality seen. Again noted is probable occlusion of the origin of the SMA with distal reconstitution, and probable s ignificant stenosis of the proximal celiac axis. No evidence to suggest acute bowel ischemia. Reviewed, dictated and finalized at location M. Impression: No acute abnormality seen. Again noted is probable occlusion of the origin of the SMA with distal reconsti tution, and probable significant stenosis of the proximal celiac axis. No evide nce to suggest acute bowel ischemia.
[2022-12-13 18:54] VITALS: BP 187/53; PULSE 70; RESP 20; TEMP 36.8; O2SAT 98
[2022-12-13 23:53] LABS: Basophils Absolute Auto 0.1 K/mm3 (0.0-0.1); Basophils Percent Auto 0.5 % (0.2-1.2); Eosinophils Absolute Auto 0.4 K/mm3 (0-0.3); Hematocrit 37.3 % (37.0-47.0); Hemoglobin 11.5 g/dL (12.0-15.0); Immature Granulocyte Absolute 0.11 K/mm3 (0.00-0.031); Immature Granulocyte Percent A 0.8 % (0-0.5); Lymphocytes Absolute Auto 2.62 K/mm3 (0.9-3.2); Lymphocytes Percent Auto 17.9 % (18.3-44.2); Mean Corpuscular HGB Conc 30.8 g/dl (32-36); Mean Corpuscular Volume 84.4 fl (80-100); Mean Platelet Volume 10.5 fl (7.4-10.4); Monocytes Absolute Auto 0.9 K/mm3 (0.1-0.6); Monocytes Percent Auto 6.1 % (2.6-8.5); Neutrophils Absolute Auto 10.5 K/mm3 (1.3-6.7); Neutrophils Percent Auto 71.7 % (45.5-73.1); Platelet Count Result 347 k/mm3 (150-375); Red Blood Count 4.42 M/mm3 (4.2-5.4); Red Cell Distribution Width 13.7 % (11.5-14.5); White Blood Count 14.6 K/mm3 (4.5-10.0)
[2022-12-13 23:58] LABS: Alanine Aminotransferase 20 U/L (6-35); Albumin Level 4.6 g/dL (3.5-5.1); Alkaline Phosphatase 99 U/L (38-126); Anion Gap 7 mmol/L (8-16); Aspartate Amino Transferase 27 U/L (14-36); Bilirubin,Total 0.4 mg/dL (0.2-1.3); Blood Urea Nitrogen 31 mg/dL (7-17); Calcium 9.9 mg/dL (8.4-10.2); Carbon Dioxide 30 mmol/L (22-30); Chloride 92 mmol/L (98-107); Estimated Glomerular Filt Rate 32; Glucose 185 mg/dL (65-110); Lipase 88 U/L (23-300); Potassium 4.5 mmol/L (3.4-5.0); Sodium 129 mmol/L (137-145)
[2022-12-14] VITALS (24 sets, daily range): BP systolic 108–173; BP diastolic 42–100; PULSE 50–91; RESP 10–18; TEMP 36.4; O2SAT 94–100
[2022-12-14 00:42] LABS: Appearance Urine Cloudy (Clear); Bacteria Urine 3+ /hpf; Bilirubin Urine Negative (Negative); Blood Urine Negative (Negative); Color Urine Yellow (Yellow); Glucose Urine UA Negative (Negative); Ketones Urine Negative (Negative); Leukocyte Esterase Ur 3+ LEU/UL (Negative); Need Manual Microscopic Reviewed; Nitrate Urine Negative (Negative); Non Pathogenic Casts >20; Protein Urine 1+ mg/dL (Negative); RBC Urine 0-2 /hpf (0-2); Specific Grav Ur 1.012 (1.001-1.035); Squamous Epithelial Cell Urine Few /hpf (Few); Urobilinogen Urine 0.2 mg/dL (<2.0); WBC Urine 51-100 /hpf; pH Urine 6.5 (5.0-9.0)
[2022-12-14 00:45] LABS: Add Urine Microscopic? YES
[2022-12-14] MEDS: ONDANSETRON INJ 4 MG/2 ML VIAL IV PUSH (01:44)
[2022-12-14] MEDS: MORPHINE SULFATE (*CRX) 2 MG/ML INJ IV PUSH ×2 (01:45→06:37)
[2022-12-14] MEDS: FAMOTIDINE 20 MG/2 ML VIAL IV PUSH (01:45)
--- NOTE | 2022-12-14 03:53 | ED.ABDPAIN ---
HPI - Abdominal Pain General Chief Complaint: Abdominal Pain Stated Complaint: abd pain/recent post op Time Seen by Provider: 12/14/22 01:02 History of Present Illness HPI narrative: Patient presents to the emergency department from home with persistent generalized abdominal pain. She had a colectomy done 2 months ago and has had constant pain since. At times pain gets much worse. Her children have all been diagnosed with Crohn's disease but she states she has been told she does not have it. She is also concerned because her bowel movement tonight was white and that was similar to when she had the surgery a couple months ago. She had surgery done at [facility] for necrotic bowel Related Data Home Medications Medication Instructions Recorded Confirmed amlodipine 5 mg tablet 5 mg PO DAILY 08/26/22 08/26/22 atorvastatin 80 mg tablet 80 mg PO DAILY 08/26/22 08/26/22 bethanechol chloride 10 mg tablet 10 mg PO BID 08/26/22 08/26/22 clopidogrel 75 mg tablet 75 mg PO DAILY 08/26/22 08/26/22 escitalopram oxalate 10 mg tablet 10 mg PO DAILY 08/26/22 08/26/22 famotidine 40 mg tablet 40 mg PO BID 08/26/22 08/26/22 fenofibrate 160 mg tablet 160 mg PO DAILY 08/26/22 08/26/22 fentanyl 50 mcg/hr transdermal 50 mcg transdermal Q72H 08/26/22 08/26/22 patch fluconazole 100 mg tablet 100 mg PO DAILY 08/26/22 08/26/22 furosemide 20 mg tablet 20 mg PO DAILY 08/26/22 08/26/22 gabapentin 300 mg capsule 300 mg PO TID 08/26/22 08/26/22 glipizide 10 mg tablet, extended 10 mg PO DAILY 08/26/22 08/26/22 release 24 hr hydroxyzine HCl 25 mg tablet 25 mg PO HS PRN Insomnia 08/26/22 08/26/22 levothyroxine 88 mcg tablet 88 mcg PO DAILY 08/26/22 08/26/22 naloxegol 25 mg tablet (Movantik) 25 mg PO DAILY 08/26/22 08/26/22 nitroglycerin 0.4 mg sublingual 0.4 mg sublingual Q15M PRN Chest 08/26/22 08/26/22 tablet Pain ropinirole 0.5 mg tablet 0.5 mg PO QID 08/26/22 08/26/22 Allergies Allergy/AdvReac Type Severity Reaction Status Date / Time aspirin Allergy Other Verified 08/25/22 22:31 Cephalosporins Allergy Rash Verified 08/25/22 22:31 codeine Allergy Dyspnea / Verified 08/25/22 22:31 SOB Tetracyclines Allergy Rash Verified 08/25/22 22:31 Review of Systems Review of Systems: Review of systems negative except for what is documented in the [facility] Past Medical History Medical History CKD stage 3 due to type 2 diabetes mellitus History of tobacco abuse Hypertension associated with diabetes Hypertriglyceridemia Hypothyroidism Type 2 diabetes mellitus Surgical History Surgical History Status post aorto-coronary artery bypass graft Family History Family History Daughter Crohn's disease Son Crohn's disease Social History Social History Years smoked: 20 Smoking status: Former smoker Alcohol intake: never Substance use: never Lack of Transportation: No Lack of Food: Sometimes True Current Housing: I Have Housing Concerned About Future Housing: No Difficulty Paying Gas/Electric Bills: No Difficulty Paying for Meds: No Currently Unemployed: No Education: Decline to Answer Difficulty w/ Childcare or Family Care: No Spiritual care concerns: No Exam Narrative: GENERAL: Well-appearing, well-nourished, and in no acute distress. HEAD: Normocephalic, atraumatic. EYES: PERRLA and EOMI. ENT: Nares clear, no rhinorrhea or epistaxis. Mucous membranes moist. NECK: Supple. CHEST: Clear to auscultation. No respiratory distress. HEART: Regular rate and rhythm. ABDOMEN: Soft, nontender, nondistended. EXTREMITIES: Normal range of motion. No edema. SKIN: Warm, dry, no rash. NEURO: No focal deficits. Alert and oriented x3. PSYCH: Normal mood and affect. Course Course Emergen
[2022-12-14] MEDS: CIPROFLOXACIN 400 MG/D5W 200ML 200 ML 200 MG IVPB (04:39)
[2022-12-14] MEDS: SODIUM CHLORIDE 0.9% IV 1,000 ML 999 ML IV CONT (05:02)
[2022-12-14] MEDS: SODIUM CHLORIDE 0.9% IV 500 ML 999 ML IV CONT (05:02)
--- NOTE | 2022-12-14 07:27 | PC.NURSE ---
Report to KARELY De La Torre
== END 2022-12-14 07:48 | disposition home or self-care (01) ==
PROVIDERS: Emergency Provider Emergency Medicine; PCP Emergency Medicine
DX: N39.0 Urinary tract infection, site not specified (principal); R10.9 Unspecified abdominal pain; I12.9 Hypertensive chronic kidney disease with stage 1 through stage 4 chronic kidney disease, or unspecified chronic kidney disease; E11.22 Type 2 diabetes mellitus with diabetic chronic kidney disease; N18.30 Chronic kidney disease, stage 3 unspecified; E03.9 Hypothyroidism, unspecified
CPT/HCPCS: 36415; 74177; 80053; 81001; 83690; 85025; 87086; 87088; 96365; 96366; 96375; 96376; 99284; J0744; J2270; J2405; J7030; J7040; Q9967